=== PATIENT | female | born 1965 | race African-American/Black ===

== ENCOUNTER 2017-02-04 07:19 | Emergency (ER) | payer MEDICAID ==
[~2017-02-04] VITALS: Ht 154.9 cm; Wt 90.0 kg
[2017-02-04 07:22] VITALS: BP 102/59
--- NOTE | 2017-02-04 07:30 | NUR ---
PT AMBULATED TO ER OF #1.
[2017-02-04 07:31] VITALS: BP 102/59
--- NOTE | 2017-02-04 07:34 | NUR ---
Patient being evaluated by physician at bedside.
--- NOTE | 2017-02-04 07:34 | NUR ---
51/F PRESENT TO ER C/O COLD SYMPTOMS x 2 DAYS. PT STATES PAIN 9/10 ACHING DUE TO COUGH. COUGH NON-PRODUCTIVE. AAOx4, PERRLA, BREATHING EVEN AND UNLABORED. ERMD NOTIFIED OF PATIENT STATUS.
--- NOTE | 2017-02-04 07:37 | NUR ---
Patient discharged with v/s stable. Written and verbal after care instructions given and explained. Patient alert, oriented and verbalized understanding of instructions. Ambulatory with steady gait. All questions addressed prior to discharge. ID band removed. Patient advised to follow up with PMD. Rx of TYLENOL WITH CODIENE COUGH SYRUP, SUDAFED 30MG AND Z-ERIK 250MG TABLETS given. Patient educated on indication of medication including possible reaction and side effects. Opportunity to ask questions provided and answered.
== END 2017-02-04 07:37 | disposition home or self-care (01) ==
LOC: MED 07:19
DX: J20.9 Acute bronchitis, unspecified (principal); J02.9 Acute pharyngitis, unspecified; E11.9 Type 2 diabetes mellitus without complications; I10 Essential (primary) hypertension

== ENCOUNTER 2017-06-04 07:24 | Emergency (ER) | payer MEDICAID ==
[~2017-06-04] VITALS: Ht 157.5 cm; Wt 89.4 kg
[2017-06-04 07:41] VITALS: BP 143/80
--- NOTE | 2017-06-04 07:46 | NUR ---
Patient ambulated to bed 07.
--- NOTE | 2017-06-04 07:51 | NUR ---
PATIENT PRESENTS TO ED WITH LEFT CORNER LIP PAIN/SLIGHT SWELLING . PT STATES . DENIES N/V/D; SKIN IS PINK/WARM/DRY; AAOX4 WITH EVEN AND STEADY GAIT; LUNGS CLEAR BL; HR EVEN AND REGULAR; PT DENIES ANY FEVER, CP, SOB, OR COUGH AT THIS TIME; PATIENT STATES PAIN OF 7/10 AT THIS TIME; VSS; PATIENT POSITIONED FOR COMFORT; HOB ELEVATED; BEDRAILS UP X2; BED DOWN. ER MD MADE AWARE OF PT STATUS.
--- NOTE | 2017-06-04 07:52 | NUR ---
Dr. Lazo evaluating patient at bedside.
[2017-06-04 08:05] VITALS: BP 143/80
--- NOTE | 2017-06-04 08:05 | NUR ---
Patient discharged with v/s stable. Written and verbal after care instructions given and explained. Patient alert, oriented and verbalized understanding of instructions. Ambulatory with steady gait. All questions addressed prior to discharge. ID band removed. Patient advised to follow up with PMD. Rx of atarax, benadryl given. Patient educated on indication of medication including possible reaction and side effects. Opportunity to ask questions provided and answered.
== END 2017-06-04 08:05 | disposition home or self-care (01) ==
LOC: MED 07:24
DX: S00.561A Insect bite (nonvenomous) of lip, initial encounter (principal); I10 Essential (primary) hypertension; R20.2 Paresthesia of skin; R20.0 Anesthesia of skin; K21.9 Gastro-esophageal reflux disease without esophagitis; W57.XXXA Bitten or stung by nonvenomous insect and other nonvenomous arthropods, initial encounter; Y93.89 Activity, other specified; Y92.89 Other specified places as the place of occurrence of the external cause; Y99.8 Other external cause status
CPT/HCPCS: 99283

== ENCOUNTER 2021-09-03 08:39 | Emergency (ER) | payer MEDICAID ==
[~2021-09-03] VITALS: Ht 152.4 cm; Wt 84.4 kg
[2021-09-03 08:48] VITALS: BP 148/86
--- NOTE | 2021-09-03 08:49 | NUR ---
PT AMBULATED TO ER BED 10 WITH A STEADY GAIT.
--- NOTE | 2021-09-03 08:53 | NUR ---
55 Y/O FEMALE C/O RIGHT EAR PAIN 8 DESCRIBES ACHING RADIATING TO RIGHT SIDE OF NECK AND FACE X6DAYS. PT STATES +TINNITUS, DENIES N/V/D, DENIES FEVER/CHILLS. PT STATES SHE USED A QTIP WITH PEROXIDE WITH NO RELIEF, DENIES RX PRIOR TO ARRIVAL. PMH: DM, HTN, HLD, RA, AND NEUROPATHY NKA
--- NOTE | 2021-09-03 08:54 | NUR ---
DR. JAMISON AT PT BEDSIDE FOR FURTHER EVALUATION.
[2021-09-03] MEDS ORDERED: [UNRECOGNIZED DRUG - CODE] PO (09:23)
[2021-09-03 09:33] VITALS: BP 148/86
--- NOTE | 2021-09-03 09:33 | NUR ---
Patient discharged with v/s stable. Written and verbal after care instructions given OTTIS EXTERNA and explained. Patient alert, oriented and verbalized understanding of instructions. Ambulatory with steady gait. All questions addressed prior to discharge. ID band removed. Patient advised to follow up with PMD. Rx of OFLOXACIN given. Patient educated on indication of medication including possible reaction and side effects. Opportunity to ask questions provided and answered.
== END 2021-09-03 09:33 | disposition home or self-care (01) ==
LOC: MED 08:39
DX: H60.91 Unspecified otitis externa, right ear (principal); K21.9 Gastro-esophageal reflux disease without esophagitis; I10 Essential (primary) hypertension; E78.5 Hyperlipidemia, unspecified; Z79.899 Other long term (current) drug therapy
CPT/HCPCS: 99283

== ENCOUNTER 2022-01-05 07:41 | Emergency (ER) | payer MEDICAID ==
[~2022-01-05] VITALS: Ht 152.4 cm; Wt 90.7 kg
[~2022-01-05 07:41] MED LIST: [UNRECOGNIZED DRUG - CODE] PO
[2022-01-05 07:42] VITALS: BP 123/97
[2022-01-05] MEDS ORDERED: IBUPROFEN 600 MG TAB PO ONE (08:00)
[2022-01-05] MEDS ORDERED: ACETAMINOPHEN EXTRA STRENGTH 500 MG TAB PO ONE (08:00)
--- NOTE | 2022-01-05 08:09 | NUR ---
pt taken to xray via w/c
--- NOTE | 2022-01-05 08:14 | NUR ---
PATIENT RETURNED TO BED 11 FROM X-RAY VIA WHEELCHAIR
[2022-01-05] MEDS ORDERED: LID5T TP (08:27)
[2022-01-05] MEDS ORDERED: IBUP-2213 PO (08:27)
[2022-01-05] MEDS ORDERED: ACET-10509 PO (08:27)
--- NOTE | 2022-01-05 08:47 | NUR ---
Patient discharged with v/s stable. Written and verbal after care instructions given and explained. Patient alert, oriented and verbalized understanding of instructions. Ambulatory with steady gait. All questions addressed prior to discharge. ID band removed. Patient advised to follow up with PMD. Rx of LIDOCAINE HYD, IBUPROFEN, AND ACETAMINOPHEN given. Patient educated on indication of medication including possible reaction and side effects. Opportunity to ask questions provided and answered. Work note was given.
[2022-01-05 08:50] VITALS: BP 127/77
== END 2022-01-05 08:50 | disposition home or self-care (01) ==
LOC: MED 07:41
DX: R07.89 Other chest pain (principal); E11.9 Type 2 diabetes mellitus without complications; I10 Essential (primary) hypertension; W19.XXXA Unspecified fall, initial encounter; Y93.89 Activity, other specified; Y92.89 Other specified places as the place of occurrence of the external cause; Y99.8 Other external cause status
CPT/HCPCS: 71046; 99283

== ENCOUNTER 2022-06-29 17:37 | Emergency (ER) | payer MEDICAID ==
[~2022-06-29] VITALS: Ht 160 cm; Wt 81.6 kg
[~2022-06-29 17:37] MED LIST changes: +ACET-10509 PO; +IBUP-2213 PO; +LID5T TP; +[UNRECOGNIZED DRUG - CODE] PO; -[UNRECOGNIZED DRUG - CODE] PO
[2022-06-29 17:39] VITALS: BP 143/58
--- NOTE | 2022-06-29 17:45 | NUR ---
WALKED IN C/O CP ONSET 10AM TODAY. STATES DIZZINESS AND HEADACHE. DENIES FALL OR TRAUMA. VITALS STABLE. STATES NOT COMPLIANT WITH BP MED FOR 5 MONTHS. PMH: HTN, DM2 NKA
--- NOTE | 2022-06-29 18:14 | NUR ---
UNABLE TO AMBULATE TO RESTROOM PT IS UNSTEADY ON GAIT.
--- NOTE | 2022-06-29 18:16 | NUR ---
BEDPAN PROVIDED FOR URINE
[2022-06-29] MEDS ORDERED: MECLIZINE 25 MG TAB PO ONE (18:20)
--- NOTE | 2022-06-29 18:59 | NUR ---
PT VOMITTED UNDIGESTED FOOD ERMD AWARE. PT STATES SHE FEELS BETTER AFTER VOMITING.
[2022-06-29] MEDS ORDERED: ONDANSETRON 4 MG ODT PO ONE (19:00)
--- NOTE | 2022-06-29 19:15 | NUR ---
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 WAITING FOR DISPOSITION.
[2022-06-29] MEDS ORDERED: ONDA8TAB87 PO (19:17)
[2022-06-29] MEDS ORDERED: MECL-303 PO (19:17)
[2022-06-29] MEDS ORDERED: IBUP-2213 PO (19:17)
[2022-06-29 19:56] VITALS: BP 149/73
--- NOTE | 2022-06-29 19:57 | NUR ---
Patient discharged with v/s stable. Written and verbal after care instructions given and explained. Patient verbalized understanding. Ambulatory with steady gait. All questions addressed prior to discharge. Advised to follow up with PMD.
== END 2022-06-29 19:53 | disposition home or self-care (01) ==
LOC: MED 17:37
DX: R07.89 Other chest pain (principal); H81.399 Other peripheral vertigo, unspecified ear; E11.9 Type 2 diabetes mellitus without complications; I10 Essential (primary) hypertension; Z98.890 Other specified postprocedural states; M06.9 Rheumatoid arthritis, unspecified; Z79.899 Other long term (current) drug therapy; Z79.1 Long term (current) use of non-steroidal anti-inflammatories (NSAID); Z79.2 Long term (current) use of antibiotics
CPT/HCPCS: 81002; 93005; 99283; J8597; Q0162

== ENCOUNTER 2023-04-13 13:54 | Emergency (ER) | payer MEDICAID ==
[~2023-04-13] VITALS: Ht 152.4 cm; Wt 81.2 kg
[~2023-04-13 13:54] MED LIST changes: +MECL-303 PO; +ONDA8TAB87 PO
[2023-04-13 14:08] VITALS: BP 134/65; PULSE 91; RESP 16; TEMP 98.2; O2SAT 100
[2023-04-13] MEDS ORDERED: KETOROLAC 30 MG/ML VIAL IM ONE (14:30)
[2023-04-13] MEDS ORDERED: NAPR-1704 PO (14:37)
--- NOTE | 2023-04-13 15:12 | NUR ---
Patient discharged with v/s stable. Written and verbal after care instructions FOR HAND CONTUSION given and explained. Patient alert, oriented and verbalized understanding of instructions. Ambulatory with steady gait. All questions addressed prior to discharge. ID band removed. Patient advised to follow up with PMD. Rx of NAPROXEN given. Opportunity to ask questions provided and answered. COPY OF XRAY PROVIDED
--- NOTE | 2023-04-13 15:54 | NUR ---
The patient's care was reviewed and supervised by [facility], RN.
[2023-04-13 15:55] VITALS: O2SAT 100
== END 2023-04-13 15:12 | disposition home or self-care (01) ==
LOC: MED 13:54
DX: S63.501A Unspecified sprain of right wrist, initial encounter (principal); S60.221A Contusion of right hand, initial encounter; E11.9 Type 2 diabetes mellitus without complications; I10 Essential (primary) hypertension; Z79.899 Other long term (current) drug therapy; W50.0XXA Accidental hit or strike by another person, initial encounter; Y93.89 Activity, other specified; Y92.89 Other specified places as the place of occurrence of the external cause; Y99.8 Other external cause status
CPT/HCPCS: 29125; 73130; 96372; 99283; J1885